=== PATIENT | male | born 2000 ===

== ENCOUNTER 2019-11-30 11:09 | Emergency (ER) | payer SELFPAY ==
[2019-11-30] MEDS ORDERED: Sodium Chloride 0.9% 10 ML Syringe FLUSH PRN (12:00)
[2019-11-30] MEDS ORDERED: Sodium Chloride 0.9% 2.5 ML Syringe FLUSH PRN (12:00)
[2019-11-30] MEDS ORDERED: Sodium Chloride 0.9% 1,000 ML IV ONE (12:00)
--- NOTE | 2019-11-30 12:37 | EDM.PDOC ---
ED HPI GENERAL MEDICAL PROBLEM - General Chief Complaint: Cardiovascular Problem Stated Complaint: REPORT GIVEN TO NURSE Time Seen by Provider: 11/30/19 11:54 Source of Information: Reports: Patient - History of Present Illness INITIAL COMMENTS - FREE TEXT/NARRATIVE: History of present illness: 19-year-old male sent by nephrology clinic for tachycardia eval. Patient is asymptomatic. Apparently he was just at the nephrology clinic for routine follow-up evaluation. He has history of diabetes and apparently is closely watched for renal function as he had prior renal insufficiency in the past. Apparently today's labs came back with an elevated triglycerides and the web press roll tender was concerned that his heart rate was 109 at rest and asymptomatically, therefore she wanted him to have EKG and other work-up done here today. Review of systems: As per history of present illness and below otherwise all systems reviewed and negative. Past medical history: As per history of present illness and as reviewed below otherwise noncontributory. Surgical history: As per history of present illness and as reviewed below otherwise noncontributory. Social history: No reported history of drug or alcohol abuse. No Tobacco Family history: As per history of present illness and as reviewed below otherwise noncontributory. Physical exam: GEN: no acute distress, well appearing HEENT: Atraumatic, normocephalic, mucous membranes moist, Neck: supple, nontender, trachea midline. Lungs: No respiratory distress. Heart: mildly tachycardic Extremities: Atraumatic. Neurovascularly intact. Neuro: Awake, alert, oriented. Neuro Exam nonfocal. Skin: warm, dry, no lesions Diagnostics: [] Therapeutics: [] MDM: Impression: [] Plan: [] Definitive disposition and diagnosis as appropriate pending reevaluation and review of above. - Related Data Allergies Allergy/AdvReac Type Severity Reaction Status Date / Time No Known Allergies Allergy Verified 11/30/19 12:31 Home Meds: Home Meds Fenofibrate Nanocrystallized [Fenofibrate] 145 mg PO DAILY 11/30/19 [History] Insulin Aspart [NovoLOG] 100 units SQ DAILY 11/30/19 [History] lisinopriL [Lisinopril] 10 mg PO DAILY 11/30/19 [History] Past Medical History Cardiovascular History: Reports: High Cholesterol, Hypertension Other Genitourinary History: Pt states he has "kidney problems" for which he sees a web press roll tender. - Infectious Disease History Infectious Disease History: Reports: None Social & Family History - Tobacco Use Smoking Status *Q: Never Smoker - Recreational Drug Use Recreational Drug Use: No ED ROS GENERAL - Review of Systems Review Of Systems: See Below (HPI) ED EXAM, GENERAL - Physical Exam Exam: See Below (See HPI) EKG INTERPRETATION EKG Interpretation Comments: EKG performed at 11:32 AM, sinus rhythm, rate 98, Q waves in leads III and aVF. T inversions in the inferior and lateral leads. Repeat EKG performed at 1:52 PM, appears clinically unchanged, rate 96, sinus rhythm, inferior Q waves and T inversions in inferior and lateral leads. Patient was asymptomatic during both of these EKGs. Course - Vital Signs Text/Narrative:: Asymptomatic tachycardia with normal work-up here today including troponin negative x2, negative d-dimer, and patient feeling well throughout. Continued tachycardia despite IV fluids and despite patient having no pain and no anxiety. The patient's EKG is slightly abnormal with T inversions in inferior Q waves. This was repeated and shows no change. Discussed all the above with the patient at length. Discussed possibility of admission though the patient is asymptomatic and would rather go home. We discussed need for urgent cardiology follow-up and will obtain Holter monitor for the patient. I did discuss strict return precautions including if the patient develops any chest pain or difficulty breathing whatsoever that he needs to return to the emergency department by EMS immediately. Patient voiced understanding of all of the above. Discussed with respiratory therapy who will obtain zio monitor for the patient, through the patient for 2 weeks and results will be forwarded to Dr. Abel. We will also refer for cardiology follow-up. Last Recorded V/S: Last Vital Signs Temp 98.7 F 11/30/19 11:39 Pulse 100 11/30/19 16:14 Resp 16 11/30/19 16:14 BP 126/76 11/30/19 16:14 Pulse Ox 96 11/30/19 16:14 - Orders/Labs/Meds Orders: Active Orders 24 hr Category Date Time Status EKG 12 Lead [EKG Documentation Completion] [RC] STAT Care 11/30/19 13:54 Active EKG Documentation Completion [RC] STAT Care 11/30/19 11:43 Active Saline Lock Insert [OM.PC] Stat Oth 11/30/19 12:00 Ordered Labs: Laboratory Tests 11/30/19 11/30/19 11/30/19 Range/Units 12:42 12:42 12:42 WBC 8.08 (4.0-11.0) K/uL RBC 5.08 (4.50-5.90) M/uL Hgb 14.5 (13.0-17.0) g/dL Hct 42.2 (38.0-50.0) % MCV 83.1 (80.0-98.0) fL MCH 28.5 (27.0-32.0) pg MCHC 34.4 (31.0-37.0) g/dL RDW Std Deviation 37.3 (28.0-62.0) fl RDW Coeff of Viral 12 (11.0-15.0) % Plt Count 246 (150-400) K/uL MPV 10.90 (7.40-12.00) fL Neut % (Auto) 60.4 (48.0-80.0) % Lymph % (Auto) 29.2 (16.0-40.0) % [place] % (Auto) 9.7 (0.0-15.0) % Eos % (Auto) 0.6 (0.0-7.0) % Baso % (Auto) 0.1 (0.0-1.5) % Neut # (Auto) 4.9 (1.4-5.7) K/uL Lymph # (Auto) 2.4 (0.6-2.4) K/uL [place] # (Auto) 0.8 (0.0-0.8) K/uL Eos # (Auto) 0.1 (0.0-0.7) K/uL Baso # (Auto) 0.0 (0.0-0.1) K/uL Nucleated RBC % 0.0 /100WBC Nucleated RBCs # 0 K/uL D-Dimer, Quantitative < 0.19 (0.0-0.50) mg/L FEU Sodium 137 (136-148) mmol/L Potassium 3.6 (3.5-5.1) mmol/L Chloride 101 (98-107) mmol/L Carbon Dioxide 24.7 (21.0-32.0) mmol/L BUN 14 (7.0-18.0) mg/dL Creatinine 0.7 L (0.8-1.3) mg/dL Est Cr Clr Drug Dosing 172.36 mL/min Estimated GFR (MDRD) > 60.0 ml/min Glucose 193 H (74-106) mg/dL Calcium 8.8 (8.5-10.1) mg/dL Total Bilirubin 0.4 (0.2-1.0) mg/dL AST 15 (15-37) IU/L ALT 34 (14-63) IU/L Alkaline Phosphatase 71 (46-116) U/L Troponin I < 0.050 (0.000-0.056) ng/mL Total Protein 7.9 (6.4-8.2) g/dL Albumin 3.9 (3.4-5.0) g/dL Globulin 4.0 (2.6-4.0) g/dL Albumin/Globulin Ratio 1.0 (0.9-1.6) TSH 3rd Generation 3.34 (0.36-3.74) uIU/mL 11/30/19 Range/Units 14:47 WBC (4.0-11.0) K/uL RBC (4.50-5.90) M/uL Hgb (13.0-17.0) g/dL Hct (38.0-50.0) % MCV (80.0-98.0) fL MCH (27.0-32.0) pg MCHC (31.0-37.0) g/dL RDW Std Deviation (28.0-62.0) fl RDW Coeff of Viral (11.0-15.0) % Plt Count (150-400) K/uL MPV (7.40-12.00) fL Neut % (Auto) (48.0-80.0) % Lymph % (Auto) (16.0-40.0) % [place] % (Auto) (0.0-15.0) % Eos % (Auto) (0.0-7.0) % Baso % (Auto) (0.0-1.5) % Neut # (Auto) (1.4-5.7) K/uL Lymph # (Auto) (0.6-2.4) K/uL [place] # (Auto) (0.0-0.8) K/uL Eos # (Auto) (0.0-0.7) K/uL Baso # (Auto) (0.0-0.1) K/uL Nucleated RBC % /100WBC Nucleated RBCs # K/uL D-Dimer, Quantitative (0.0-0.50) mg/L FEU Sodium (136-148) mmol/L Potassium (3.5-5.1) mmol/L Chloride (98-107) mmol/L Carbon Dioxide (21.0-32.0) mmol/L BUN (7.0-18.0) mg/dL Creatinine (0.8-1.3) mg/dL Est Cr Clr Drug Dosing mL/min Estimated GFR (MDRD) ml/min Glucose (74-106) mg/dL Calcium (8.5-10.1) mg/dL Total Bilirubin (0.2-1.0) mg/dL AST (15-37) IU/L ALT (14-63) IU/L Alkaline Phosphatase (46-116) U/L Troponin I < 0.050 (0.000-0.056) ng/mL Total Protein (6.4-8.2) g/dL Albumin (3.4-5.0) g/dL Globulin (2.6-4.0) g/dL Albumin/Globulin Ratio (0.9-1.6) TSH 3rd Generation (0.36-3.74) uIU/mL Meds: Medications Discontinued Medications Generic Name Dose Route Start Last Admin Trade Name Freq PRN Reason Stop Dose Admin Sodium Chloride 1,000 mls @ 999 mls/hr 11/30/19 12:00 11/30/19 12:15 Normal Saline IV 11/30/19 13:00 999 mls/hr .Bolus ONE Administration Sodium Chloride 10 ml 11/30/19 12:00 11/30/19 12:15 Saline Flush FLUSH 10 ml ASDIRECTED PRN Administration Keep Vein Open Sodium Chloride 2.5 ml 11/30/19 12:00 11/30/19 12:16 Saline Flush FLUSH 2.5 ml ASDIRECTED PRN Administration Keep Vein Open - Re-Assessments/Exams Free Text/Narrative Re-Assessment/Exam: 11/30/19 13:40 Patient is resting comfortably and in no acute distress. Still asymptomatic at this time. Discussed all the lab results and pending labs at this time. Will perform repeat EKG as well. 11/30/19 15:53 The patient is still resting comfortably. He is still mildly tachycardic. He is still having no symptoms whatsoever. Reports that he he is hungry, is feeling well and would like to be discharged. We discussed possibility of admission versus discharge. He would prefer to go home. We will attach Holter monitor to the patient and I did discuss plan for cardiology follow-up. He does report that he thinks his heart rate is chronically elevated. Departure - Departure Time of Disposition: 15:54 Disposition: Home, Self-Care 01 Clinical Impression: Tachycardia, T wave inversion in EKG Instructions: Sinus Tachycardia Referrals: PCP,Not In Area [Primary Care Provider] - Forms: ED Department Discharge Additional Instructions: Discussed, your EKG is abnormal. As you were not having any symptoms and you prefer to be discharged home, you will be discharged home, however if you do develop any symptoms including any racing heartbeat, chest pain, difficulty breathing, dizziness, or passing out, you need to return to the emergency department immediately. Please keep routine follow-up with your primary care physician or follow-up with 1 of the primary clinics listed below. You also need to follow-up with cardiology at the office listed below. You have been given ZIO monitor which will monitor your heart rate and rhythm and forward this to a physician who will need to meet with you to discuss this. These do not take the monitor off. following information is given to patients seen in the emergency department who are being discharged to home. This information is to outline your options for follow-up care. We provide all patients seen in our emergency department with a follow-up referral. The need for follow-up, as well as the timing and circumstances, are variable d epending upon the specifics of your emergency department visit. If you don't have a primary care physician on staff, we will provide you with a referral. We always advise you to contact your personal physician following an emergency department visit to inform them of the circumstance of the visit and for follow-up with them and/or the need for any referrals to a consulting specialist. The emergency department will also refer you to a specialist when appropriate. This referral assures that you have the opportunity for follow-up care with a specialist. All of these measure are taken in an effort to provide you with optimal care, which includes your follow-up. Under all circumstances we always encourage you to contact your private physician who remains a resource for coordinating your care. When calling for follow-up care, please make the office aware that this follow-up is from your recent emergency room visit. If for any reason you are refused follow-up, please contact the [facility] Emergency Department at and asked to speak to the emergency department charge nurse. [facility] - Primary [facility] [address] [place] [id number] [facility] [address] [place] [id number] [facility] - Cardiology [address] [place] [id number] Sepsis Event Note (ED) - Evaluation Sepsis Screening Result: No Definite Risk - Focused Exam Vital Signs: Vital Signs Temp Pulse Resp BP Pulse Ox 11/30/19 16:14 100 16 126/76 96 11/30/19 13:53 98 16 135/83 98 11/30/19 11:39 98.7 F 98 18 147/85 H 98 - My Orders Last 24 Hours: My Active Orders 11/30/19 11:43 EKG Documentation Completion [RC] STAT 11/30/19 12:00 Saline Lock Insert [OM.PC] Stat 11/30/19 13:54 EKG 12 Lead [EKG Documentation Completion] [RC] STAT - Assessment/Plan Last 24 Hours: My Active Orders 11/30/19 11:43 EKG Documentation Completion [RC] STAT 11/30/19 12:00 Saline Lock Insert [OM.PC] Stat 11/30/19 13:54 EKG 12 Lead [EKG Documentation Completion] [RC] STAT
--- NOTE | 2019-11-30 13:05 | CR ---
Chest: 2 views of the chest were obtained. Comparison: No prior chest imaging. Heart is slightly enlarged most likely relating to prominent epicardial fat pad. Upper mediastinum is normal. Lungs are clear with no acute parenchymal change. Bony structures are unremarkable. Impression: 1. Nothing acute is suspected on 2 view chest x-ray. Diagnostic code #1 This report was dictated in MDT
[2019-11-30 13:24] LABS: BLOOD UREA NITROGEN,BUN 14 mg/dL (7.0-18.0); CARBON DIOXIDE,CO2 24.7 mmol/L (21.0-32.0); CHLORIDE,CL 101 mmol/L (98-107); GLUCOSE RANDOM 193 mg/dL (74-106); POTASSIUM,K 3.6 mmol/L (3.5-5.1); SODIUM,NA 137 mmol/L (136-148)
== END 2019-11-30 16:16 | disposition home or self-care (01) ==
LOC: MW.ED 11:09
DX: R00.0 Tachycardia, unspecified (principal); R94.31 Abnormal electrocardiogram [ECG] [EKG]; I10 Essential (primary) hypertension; Z79.899 Other long term (current) drug therapy
CPT/HCPCS: 36415; 71046; 80053; 84443; 84484; 85025; 85379; 93005; 99285; J7030; 99283